=== PATIENT | female | born 1965 | race Caucasian/White ===

== ENCOUNTER → 2018-11-10 | Outpatient (CLI) | payer OTHER ==
[~2018-11-10] MED LIST: Ranitidine HCl150 M1; VENL75
== END | disposition home or self-care (01) ==
LOC: PLD 08:03 → LAB SHORT 08:03
DX: N61.0 Mastitis without abscess (principal)
CPT/HCPCS: 88305; 88312

== ENCOUNTER → 2024-04-03 | Outpatient (CLI) | payer OTHER ==
[2024-04-05 17:50] LABS: CALPROTECTIN,FECAL <5 ug/g (<=49)
[2024-04-05 17:51] LABS: PANCREATIC ELASTASE,FECAL >800 ug/g (>=100)
[2024-04-07 12:36] LABS: OVA AND PARASITE,FECAL INTERP Negative (Negative)
== END ==
LOC: LAB SHORT 12:01 → LAB 12:01
PROVIDERS: Family Medicine
DX: R10.84 Generalized abdominal pain (principal)
CPT/HCPCS: 82653; 83993; 87015; 87045; 87046; 87177; 87205; 87209; 87899